=== PATIENT | male | born 1975 | race Caucasian/White ===

== ENCOUNTER 2021-12-04 16:09 | Inpatient (IN) | payer MEDICARE, MEDICAID ==
[~2021-12-04] VITALS: Ht 170.2 cm; Wt 72.1 kg
[2021-12-04 17:12] LABS: HEMOGLOBIN 10.5 gm/dl (14.0-17.5); RED BLOOD COUNT 4.17 M/UL (4.20-5.50); WHITE BLOOD COUNT 17.4 K/UL (4.5-11.0)
[2021-12-04 17:33] LABS: BUN/CREATININE RATIO 18 (0-10)
[2021-12-05 04:29] LABS: HEMOGLOBIN 11.3 gm/dl (14.0-17.5); RED BLOOD COUNT 4.51 M/UL (4.20-5.50)
[2021-12-05 04:31] LABS: WHITE BLOOD COUNT 11.6 K/UL (4.5-11.0)
[2021-12-05 04:48] LABS: BUN/CREATININE RATIO 17 (0-10)
[2021-12-05] MEDS ORDERED: COLCHICINE0.6 MG PO (10:36)
[2021-12-05] MEDS ORDERED: HYDROCODON-ACE1 EAC4 PO (10:37)
[2021-12-05] MEDS ORDERED: LISINOPRIL10 MG PO (10:38)
[2021-12-05] MEDS ORDERED: PREDNISONE10 MG PO (10:40)
[2021-12-05] MEDS ORDERED: VITAMIN D21250 MCG PO (10:40)
[2021-12-05] MEDS ORDERED: FEBUXOSTAT40 MG PO (10:42)
[2021-12-06 03:04] LABS: HEMOGLOBIN 10.1 gm/dl (14.0-17.5); RED BLOOD COUNT 4.07 M/UL (4.20-5.50)
[2021-12-07 02:52] LABS: HEMOGLOBIN 9.4 gm/dl (14.0-17.5); RED BLOOD COUNT 3.72 M/UL (4.20-5.50)
[2021-12-07 03:31] LABS: WHITE BLOOD COUNT 18.4 K/UL (4.5-11.0)
[2021-12-07 03:33] LABS: BUN/CREATININE RATIO 20 (0-10)
[2021-12-07] MEDS ORDERED: ELIQUIS 2.5 MG2.5 MG PO (08:31)
[2021-12-07] MEDS ORDERED: FERROUS SULFAT325 M2 PO (08:31)
[2021-12-07] MEDS ORDERED: ENOXAPARIN (08:45)
[2021-12-07] MEDS ORDERED: HYDROCODON-ACE1 EAC6 PO (09:55)
--- NOTE | 2021-12-07 12:02 | NUR ---
RN GAVE PATIENT A DEMONSTRATION ON LOVENOX SUBCUTANEOUS INJECTIONS INTO EITHER LOVE HANDLE. RN ALSO DEMONSTRATED THIS TO PATIENT'S FAMILY MEMBER. PATIENT AND FAMILY MEMBER VERBALIZED UNDERSTANDING.
--- NOTE | 2021-12-07 14:43 | NUR ---
BRUNILDA WITH [facility] CALLED FOR REPORT.
== END 2021-12-07 13:52 | disposition home health service (06) | DRG 481 ==
LOC: ER1 16:09 → CDU 18:55 → M/S 20:55
PROVIDERS: Emergency Medicine; Internal Medicine; Orthopaedic Surgery; ADMIT Internal Medicine
PROC: 0QS604Z Reposition Right Upper Femur with Internal Fixation Device, Open Approach (ICD-10-PCS; principal; 2021-12-05 16:00)
DX: S72.21XA Displaced subtrochanteric fracture of right femur, initial encounter for closed fracture (principal); N17.9 Acute kidney failure, unspecified; D50.9 Iron deficiency anemia, unspecified; Z20.822 Contact with and (suspected) exposure to COVID-19; M06.9 Rheumatoid arthritis, unspecified; T38.0X5A Adverse effect of glucocorticoids and synthetic analogues, initial encounter; W01.0XXA Fall on same level from slipping, tripping and stumbling without subsequent striking against object, initial encounter; M10.9 Gout, unspecified; E87.6 Hypokalemia; I10 Essential (primary) hypertension; F15.10 Other stimulant abuse, uncomplicated; F12.10 Cannabis abuse, uncomplicated; D72.828 Other elevated white blood cell count; Z79.01 Long term (current) use of anticoagulants; Z79.82 Long term (current) use of aspirin
CPT/HCPCS: 36415; 70450; 71260; 72125; 73502; 73552; 76000; 80048; 80053; 80307; 81001; 83036; 83540; 83550; 83735; 84439; 84443; 85025; 85027; 85610; 85730; 86140; 86850; 86900; 86901; 93005; 96374; 96375; 97110-GP-CQ; 97116; 97116-GP-CQ; 97162; 97166; 97530; 99285; C1713; C9113; G0378; J0690; J1100; J1644; J1756; J2001; J2250; J2270; J2405; J2704; J3010; J7030; J7050; J7120; Q9967; U0002